=== PATIENT | male | born 1975 | race Caucasian/White ===

== ENCOUNTER 2025-04-23 13:00 | Inpatient (IN) | payer OTHER, SELFPAY ==
[2025-04-23] VITALS (19 sets, daily range): BP systolic 111–154; BP diastolic 70–127; BMI 36.9; BMI 34.7
--- NOTE | 2025-04-23 08:01 | ED.GENMED ---
History of Present Illness
General
Chief Complaint: Breathing Problem
Time Seen by Provider: 04/23/25 07:47
History of Present Illness
History of Present Illness:
49 yo male With history of hyperlipidemia presents to the emergency department for evaluation of chest pressure and fatigability for the past 3 to 4 days. He feels as though he cannot complete activities as easily as he could normally. he denies
any overt chest pain or shortness of breath but feels as though there is 'something sitting on my chest'. Denies any recent fevers or chills. Reports 2 alcoholic beverages over the weekend but denies any excessive alcohol or illicit substances.
No prior cardiac history
Past History
Past History
ED Past Medical History: GERD
ED Past Surgical History: Other (Hernia repair)
Social History
Tobacco: Non-smoker
Personal:
Living: with family
Employment: Employed
Family History
Family History: Other (Noncontributory)
Review of Systems
Review of Systems
Allergies reviewed?: Yes
All Other Systems: ROS reviewed and negative except as documented in HPI and ROS
Phy Exam
Physical Exam
Physical Exam:
GEN: Well appearing, NAD, WDWN
HEENT: Oral mucosa moist, no scleral icterus
Cardiac: Rapid irregular rate/rhythm, no murmur
Lung: No respiratory distress, no tachypnea, lungs clear to auscultation
MSK: No gross deformity or injuries, no lower extremity edema
Skin: Good color, no pallor or jaundice, no rashes
Neuro: AO x3, moves all extremities freely
Psych: Calm, cooperative
Scores
Heart Failure Risk
Heart Failure Risk Score: Not Applicable
Course
Orders/Labs/Results
Orders:
Orders
04/23/25 Breakfast
NPO
Allow oral meds: Yes
Allow clear liquids: Sips of Clears
04/23/25 07:44
Electrocardiogram (*1) Urgent
Reason for Study: Shortness of Breath
EKG- Treatment ONCE
04/23/25 07:59
Diltiazem HCl [Cardizem] 20 mg IV NOW STA
04/23/25 08:00
Diltiazem 125 mg/125 ml Nss [Cardizem] 125 mg in 125 ml IV PER PROTOCOL
Initial dose in mg/hr, then titrate:: 5
Titrate to keep:: Heart rate 80-100 bpm
Titrate by mg/hr:: 5 mg/hr
Frequency of titrations (minutes):: 15
Maximum dose in mg/hr:: 15
04/23/25 08:05
Complete Blood Count/With Diff Urgent
Comprehensive Metabolic Panel Urgent
Magnesium Urgent
Comment: ADD ON
NT-proBNP Urgent
Comment: ADD ON
TSH Reflex To Free T4 Urgent
Troponin I Urgent
04/23/25 08:46
Add On- LAB Urgent
Tests Added?: magnesium
04/23/25 09:04
Diltiazem [Cardizem] 30 mg PO NOW STA
04/23/25 09:30
PTT Urgent
Comment: Obtain baseline before beginning heparin infusion if not already collected
04/23/25 10:00
Add On- LAB Urgent
Tests Added?: BNP
CR Chest Portable - 1 View Urgent
Comment:
Reason For Exam: chest tightness
Reason Study Needs to be Portable: Other
04/23/25 11:02
Heparin 4,000 units IV NOW STA
Pharmacy Request to Place See Dose Instructions PO NOW STA
Discontinue all Active Warfarin orders?: Yes
04/23/25 11:[address] Non Medication Order As Directed
Physician Order: PTT 6 hours after initial start of Heparin infusion
Above order entered?: Yes
04/23/25 11:15
Heparin 81914 Units/250 ml 25,000 units in 250 ml IV PER PROTOCOL
Weight to be used for heparin protocol in kilograms (kg):: 134
Protocol:: Cardiac Tx/Acute Coronary
PTT Goal Range to be used:: PTT 73 to 111 seconds
Order type:: Initial
INITIAL Infusion Dose (UNITS/KG/hr) & then follow protocol:: 15 units/kg/hr
Infusion Dose in UNITS/hr & then follow protocol (UNITS/hr):: 1,500
INFUSION RATE in mL/hr & then follow protocol (mL/hr):: 15
PTT less than or equal to 64 seconds:: Increase rate by 200 units/hr (+ 2 mL/hr)
PTT 64.1 to 72.9 seconds:: Increase rate by 100 units/hr (+ 1 mL/hr)
PTT 73 to 111 seconds:: Target Range. No change in rate.
PTT 111.1 to 130.9 seconds:: Decrease rate by 100 units/hr (- 1 mL/hr)
PTT 131 to 199.9 seconds:: HOLD for 1 hr. Then decrease rate by 200 units/hr (- 2 mL/hr)
PTT greater than or equal to 200 seconds:: HOLD for 2 hrs & Notify Provider. Then decrease by 200 units/hr (-
2 mL/hr)
Lab follow-up:: Each change, PTT q6h until 2 consecutive are therapeutic. Then PTT
daily.
04/23/25 11:45
Echo 2D MMode Color/Doppler Urgent
Reason for Study: suspect new onset heart failure w/ new afib rvr
04/23/25 11:46
CT Chest PE Study Urgent
Comment:
Reason For Exam: new onset persistent chest discomfort sob afib
04/23/25 11:56
CARDIOLOGY CONSULT Routine
Consulting Provider: Efrain Howell
Was physician already notified: Yes
Reason for consult: new onset afib rvr. Possible Heart Failure
04/23/25 11:59
Admit/Transfer Patient As Directed
Co-Sign Provider:
Level of Care: Inpatient admission
Assign to:: IVU
Physician / Group: Jaime Helm
Diagnosis: New onset Afib RVR possible HF possible PE
Reason for Hospitalization: New onset Afib RVR possible HF possible PE
Expected length of stay greater than two midnights?: Yes
ELOS- Estimated Length of Stay in days: 2
I certify the patient meets the requirements for IP care: Yes
PRN Pain Medication Management As Directed
May give lesser potent ordered pain med per pt: Yes
preference::
Protocol:: Medication orders for pain may be administered in a
manner that supports deferring to patient preference
when the pt is:
- Requesting an ordered lesser potent pain medication.
Least to most potent pain medications are defined
as: acetaminophen < NSAID < tramadol < opioids
(morphine, oxycodone, hydromorphone).
- Requesting a lesser dose of the same medication IF
ORDERED.
- Requesting a less intrusive route of administration
if both routes are prescribed by the provider (PO <
IV).
04/23/25 12:[address] See Dose Instructions IV DIRECTED
04/23/25 12:02
Code Status As Directed
Resuscitation Status: Full Code
04/23/25 12:11
Venous Doppler Lwr Ext Bilat [US Periph Venous LOWER Ext Parth] Routine
Comment:
Reason For Exam: calf asymmetry new onset afib rvr
04/23/25 12:21
Troponin I Routine
04/23/25 17:30
PTT Urgent
Abnormal Lab Results
04/23/25
08:05
WBC 12.6 H 10^3/uL
(4.8-10.8)
Absolute Neuts (auto) 8.4 H 10^3/uL
(1.4-6.5)
Absolute Monos (auto) 1.2 H 10^3/uL
(0.1-0.6)
Monocytes % 9.4 H %
(1.7-9.3)
Glucose 105 H mg/dl
(70-99)
04/23/25 08:05
04/23/25 08:05
Vital Signs
Initial and Last Documented VS:
Initial Vital Signs
Temp Pulse Resp Pulse Ox
98.8 F 77 16 98
04/23/25 07:41 04/23/25 07:41 04/23/25 07:41 04/23/25 07:41
Last Documented Vital Signs
Temp Pulse Resp BP Pulse Ox
98.8 F 98 24 126/105 96
04/23/25 07:41 04/23/25 12:15 04/23/25 12:15 04/23/25 12:00 04/23/25 12:15
MDM/Problems Addressed
MDM/Problems Addressed:
49-year-old male presenting with new onset rapid atrial fibrillation. He appears quite well despite his heart rate in the 170s on arrival. Initial lab workup is unrevealing, the patient was given IV diltiazem by bolus and infusion with good rate
improvement however despite gradual up titration of diltiazem we were unable to achieve sustained rates below 110-120. We did give him oral diltiazem with the hope of bridging him off of the infusion had we been able to achieve adequate rate
control however given consistent tachycardia at rest will admit to the hospitalist service for further management. Heparin order initiated in the ED for anticoagulation
Comment
Comment:
EKG shows an irregular narrow complex tachycardia, most likely variable conduction atrial flutter
*Pulse Oximetry
SaO2: 98
Oxygen Mode of Delivery: Room air
Patient hypoxic: no
*Critical Care Note
Total Time (30-74mins, 75-104mins- exclusive of procedures): 30 minutes
comment:
Critical care time: 30 minutes
Critical care time was exclusive of: Separately billable procedures, treating other patients, and teaching time
Critical care was necessary to treat or prevent imminent or life-threatening deterioration of the following conditions: Rapid atrial fibrillation
Critical care time spent personally by me on the following activities:
[x] Review of old charts
[x] Obtaining history from patient or surrogate
[x] Ordering and review of the laboratory studies
[x] Ordering and review of radiographic studies
[x] Ordering and performing treatments and interventions
[x] Patient patient's response to treatment
[x] Development of treatment plan with patient or surrogate
ED Attending Note
-
Portions of this chart may have been created with voice recognition software.� Occasional wrong word or��sound alike� substitutions may have occurred due to the inherent limitations of voice recognition software.
Discharge Plan
Departure
Patient Disposition: Admit
Date of Disposition: 04/23/25
Time of Disposition: 11:05
Admit to: Telemetry
Presentation/result/management discussed w/ accepting MD/DO: Hospitalist
Discharge Problem:
Atrial fibrillation with RVR
Interventions
Interventions:
*Risk Screen - Suicide Last Done: 04/23/25 07:41
*General Assessment Last Done: 04/23/25 08:20
*Neglect/Abuse Screening Last Done: 04/23/25 07:41
*ED- Fall Risk Assessment Last Done: 04/23/25 08:20
*ED COVID-19 Vaccine History Last Done: 04/23/25 08:20
ED- Cardiac Assessment Last Done: 04/23/25 08:20
ED- Pulmonary Assessment Last Done: 04/23/25 08:20
[2025-04-23] MEDS: CARDIZEM 125 IV ×2 (08:18→17:19)
[2025-04-23] MEDS: CARDIZEM 20 MG IV (08:18)
[2025-04-23 08:21] LABS: Hematocrit 50.3 % (39.0-52.0); Hemoglobin 16.6 g/dL (13.0-18.0); Mean Corp Hgb Conc. 33.0 g/dL (33.0-37.0); Mean Corpuscular Volume 88.4 fL (80.0-94.0); Nucleated Red Blood Cells % 0 % (-); Platelet Count 386 10^3/uL (130-400); Red Cell Dist. Width 12.3 % (11.5-14.5)
[2025-04-23 08:34] LABS: ALT (SGPT) 30 U/L (0-50); AST (SGOT) 29 U/L (17-59); Albumin 4.4 g/dl (3.5-5.0); Alkaline Phosphatase 56 U/L (38-126); Blood Urea Nitrogen 17 mg/dl (9-20); Calcium 9.1 mg/dl (8.4-10.2); Carbon Dioxide 28 mmol/L (22-30); Chloride 107 mmol/L (98-107); Estimated Creatinine Clearance 99 ml/min; Glucose 105 mg/dl (70-99); Potassium 4.8 mmol/L (3.5-5.1); Sodium 142 mmol/L (135-145); Total Protein 6.8 g/dl (6.3-8.2); eGFR > 60.00
[2025-04-23 08:43] LABS: Troponin I < 0.012 ng/ml
[2025-04-23 09:05] LABS: Magnesium 1.8 mg/dl (1.6-2.3)
[2025-04-23] MEDS: CARDIZEM 30 MG PO (09:10)
--- NOTE | 2025-04-23 11:15 | HPS.HSE ---
Family Physician
-
Family Physician: Abundio Flores
Chief Complaint
-
Shortness of breath
History of Present Illness
49 male history obesity hyperlipidemia testosterone deficiency, recently started testosterone replacement therapy 3 months ago, history of left femur fracture manage nonoperatively with casting, ambulates without need for assistive device at
baseline, presents with shortness of breath chest tightness discomfort for the past 3 days. Started in the evening when patient was trying to sleep. Noted diaphoresis at onset of symptoms. Usual state of health prior to symptom onset.
Nonproductive cough. Denied fevers chills nausea vomiting diarrhea constipation. Noted 10 pound weight gain over the past week. Denied leg swelling. ED eval significant for Afib RVR, started on cardizem gtt and heparin gtt. Stable respiratory
status on room air at rest.
Medical History
Past Medical History
Past Medical History: Reports Other (as above)
Past Surgical History: Reports Other (as above)
Social History
Tobacco: Former Smoker (quit 25 years ago, smoked approx 15y before quitting)
Alcohol: Occasional
Drug: None
Personal:
Living: With Family
Employment: Employed
Family History
Family History: Not pertinent (reviewed)
Allergies / Home Medications
Allergies reflects when Allergies were last updated in [facility].
Home Medications with original date entered in [facility]
Allergy/Medication List:
Allergies
Allergy/AdvReac Type Severity Reaction Status Date / Time
Penicillins Allergy high Verified 09/06/17 18:13
fever,irritable
Home Medications
cholecalciferol (vitamin D3) 25 mcg (1,000 unit) tablet (Vitamin D3) 25 mcg PO DAILY 04/23/25
cyanocobalamin (vitamin B-12) 1,000 mcg tablet 1,000 mcg PO DAILY 04/23/25
duloxetine 60 mg capsule,delayed release 60 mg PO DAILY 04/23/25
ferrous sulfate 325 mg (65 mg iron) tablet 325 mg PO DAILY 04/23/25
rosuvastatin 5 mg tablet (Crestor) 5 mg PO QPM 04/23/25
therapeutic multivitamin 1 tab PO DAILY 04/23/25
vitamin K2 40 mcg tablet 40 mcg PO DAILY 04/23/25
Review of Systems
-
A 12 point ROS was completed and negative except as noted: Yes
Constitutional: Reports Other (as below)
Physical Exam
Vital Signs
Vital Signs
Temp Pulse Resp BP Pulse Ox
98.8 F 107 16 113/87 93
04/23/25 07:41 04/23/25 10:45 04/23/25 10:45 04/23/25 10:42 04/23/25 10:45
Physical Exam
General: Other (as below)
Laboratory Results
-
04/23/25 08:05
04/23/25 08:05
Laboratory Results
Total Bilirubin 1.3 mg/dl (0.2-1.3) 04/23/25 08:05
AST 29 U/L (17-59) 04/23/25 08:05
ALT 30 U/L (0-50) 04/23/25 08:05
Alkaline Phosphatase 56 U/L (38-126) 04/23/25 08:05
Troponin I < 0.012 ng/ml 04/23/25 08:05
Impression/Plan
-
ROS
General: Denies fever chills unexpected weight loss, reports unexpected weight gain 10 lbs past week
Neuro: Denies seizure shaking loss of consciousness dizziness vertigo
Psych: denies depression hallucinations confusion manic episodes
Endocrine: Denies polyuria polydipsia polyphagia heat/cold intolerance
HEENT: Denies blindness visual disturbances epistaxis
Pulmonary: reports occasional nonproductive cough exertional dyspness
Cardiovascular: reports chest tightness/discomfort palpitations denies leg swelling
Hematology: denies signs symptoms of anemia easy bruising/bleeding
Gastrointestinal: denies nausea vomiting diarrhea constipation hematemesis hematochezia melena reports appetite loss
Genito-Urinary: denies retention incontinence dysuria
Musculoskeletal: denies joint pain weakness
Dermatology: denies rash laceration bruising
Physical Exam
General: No pallor, cyanosis, or jaundice. Tanned appearance
HEENT: Throat clear. PERRLA Normocephalic atraumatic
NECK: Supple. No Carotid Bruits. JVD+
RESPIRATORY: Bibasilar Crackles auscultation
CVS: S1, S2 Irregularly Irregular tachy
ABDOMEN: Soft, non-tender. No distension. BS+/normal.
EXTREMITIES: No peripheral cyanosis or edema.
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
Psych: Calm
IMPRESSION:
49 male history obesity hyperlipidemia testosterone deficiency, started testosterone replacement therapy 3 months ago, history of left femur fracture manage nonoperatively with casting, ambulates without need for assistive device at baseline,
presents with shortness of breath chest tightness discomfort for the past 3 days. Started in the evening when patient was trying to sleep. Noted diaphoresis at onset of symptoms. Usual state of health prior to symptom onset. Nonproductive cough.
Denied fevers chills nausea vomiting diarrhea constipation. Noted 10 pound weight gain over the past week. Denied leg swelling. ED eval significant for Afib RVR, started on Cardizem gtt and heparin gtt. Stable respiratory status on room air at
rest.
PLAN:
#New Onset Afib RVR
#Suspected Associate Heart Failure
# Possible PE
IVU admit
BNP 3000s
Check Troponin
Cardio eval requested
Check CT chest PE study, ECHO, Venous Duplex
Daily Weight I/O
Consider Lasix pending CT chest study as above
cont hep gtt Cardizem Gtt
NPO except meds and sips of clears in case of need for intervention
DVT ppx hep gtt
GI ppx Protonix
Full Code
I spent a total of 80 minutes with the patient or on the floor. More than 50% of this time involved counseling and coordination of care.
[2025-04-23] MEDS: HEPARIN 4000 UNITS IV (11:26)
[2025-04-23] MEDS: HEPARIN 25000 UNITS/250 ML IV (11:32)
--- NOTE | 2025-04-23 11:51 | EDRN ---
Hospitalist notified that I will have to temporarily suspend CARDIZEM drip when pt gets hois CHEST CT test done as they will need to use that IV Site
[2025-04-23 12:03] LABS: APTT 32.1 Sec (23.4-35.0)
--- NOTE | 2025-04-23 12:20 | CON.CAR ---
Addendum entered and electronically signed by Efrain Howell MD 04/23/25 18:24:
I saw and examined the patient independently.
The [employer] DISPATCHER's note was reviewed and I agree with the note with any changes/additions below.
Comment:
49 yo male with dyslipidemia admitted with new onset A fib with RVR. He feels fatigue and chest heaviness for 3 days. Exam with irregular rhythm, no murmurs, no edema. Tele: A fib with RVR. TnI <0.012. Echo: EF 50-55%.
# A fib with RVR
-diltiazem drip: requires monitoring of tele
-CHADS2-VASC =0. Eliquis 5mg bid in preparation for DCCV, then 30 days after.
-plan for TRISTA and DCCV in AM
# Dyslipidemia
-stable: cont statin
Original Note:
Consultation
Consultation Request
Date/Time Consultation Requested: 04/23/25 1210
Date/Time Consultation Performed: 04/23/25 1220
Requesting Provider: Dr. Helm
Performing Provider: Erika ROSE for Dr. Howell
Reason for Consultation: AFIB with RVR
Medical History
-
Chief Complaint: chest discomfort and fatigue
History of Present Illness:
49 y/o male with dyslipidemia and GERD who is here for evaluation of several days of chest discomfort (heavy) and fatigue (started Wednesday night) - feels like something sitting on his chest, but has been present consistently since Wednesday- trop
normal. Laying makes it worse. He also had sweating Wednesday night and was unable to sleep. He is seen to be in AFIB with RVR and is placed on diltiazem and heparin drips. Of note, he reports a recent coronary calcium score of 0.
Past Medical History
Past Medical History: GERD and Hypercholesterolemia
Social History
Tobacco: Non-Smoker
Alcohol: Occasional
Personal:
Living: With Family
Allergies / Home Medications
Allergy/AdvReac Type Severity Reaction Status Date / Time
Penicillins Allergy high Verified 09/06/17 18:13
fever,irritable
�Medication �Instructions �Recorded �Confirmed �Type
cholecalciferol (vitamin D3) 25 25 mcg PO DAILY 04/23/25 04/23/25 History
mcg (1,000 unit) tablet (Vitamin
D3)
cyanocobalamin (vitamin B-12) 1,000 mcg PO DAILY 04/23/25 04/23/25 History
1,000 mcg tablet
duloxetine 60 mg capsule,delayed 60 mg PO DAILY 04/23/25 04/23/25 History
release
ferrous sulfate 325 mg (65 mg 325 mg PO DAILY 04/23/25 04/23/25 History
iron) tablet
rosuvastatin 5 mg tablet (Crestor) 5 mg PO QPM 04/23/25 04/23/25 History
therapeutic multivitamin 1 tab PO DAILY 04/23/25 04/23/25 History
vitamin K2 40 mcg tablet 40 mcg PO DAILY 04/23/25 04/23/25 History
Review of Systems
-
History Source: Patient
All other systems: Negative unless noted
Constitutional: Fatigue
Cardiac: Chest Pain
Physical Exam
Vital Signs
Temp Pulse Resp BP Pulse Ox
98.8 F 108 25 115/82 96
04/23/25 07:41 04/23/25 11:45 04/23/25 11:45 04/23/25 11:30 04/23/25 11:15
Lab Results
04/23/25 08:05
04/23/25 08:05
Troponin I < 0.012 ng/ml 04/23/25 08:05
Sgq-A-Exycokcdgkv Pept 3040 pg/ml 04/23/25 08:05
Physical Exam
General: Well Developed, Well Nourished and No Apparent Distress
HEENT: Normocephalic and Anicteric
Respiratory: Clear and Non Labored Respirations
Cardiac: Irregular Rhythm
Musculoskeletal: No Edema
Skin: Warm and Dry
Neuro: AO x 3
Psych: Calm
Impression / Plan
-
AFIB with RVR:
-continue IV diltiazem and IV heparin, both of which require intensive monitoring
-TSH normal
-plan TRISTA and CV in AM
-[id number] score is 0. However, will need short-term AC if cardioverted.
-echo today, if EF normal, transition to Eliquis x 1 month
-sleep study as OP- reports he snores
-we discussed aerobic exercise, keeping good weight, and avoiding excess ETOH
HLD:
-on statin
Data Reviewed
-
EKG: Tracing Personally Visualized and interpreted (AFIB with RVR, LAD. HR 148 BPM.)
Radiology: Report Reviewed by me (CXR: Low lung volumes with mild bibasilar opacities, likely atelectasis. No focal airspace disease. No pleural effusions or pneumothorax.)
Medical Tests (Nuc Med, Echo etc): Other (echo ordered)
Labs: Labs Reviewed by me
[2025-04-23 13:00] LABS: Troponin I < 0.012 ng/ml
[2025-04-23] MEDS: PROTONIX 40 MG PO (17:18)
[2025-04-23] MEDS: CRESTOR 5 MG PO (18:02)
[2025-04-23 18:33] LABS: APTT > 200 Sec (23.4-35.0)
[2025-04-23] MEDS: ELIQUIS 5 MG PO (20:15)
--- NOTE | 2025-04-23 23:38 | PTCARENOTE ---
Received pt from ED RN via stretcher @ approx 2220 into room 2250. Tele applied to pt, Afib rhythm, HR 90's-100's. pt reports chest pressure of 2/10 as if 'something is sitting on my chest' and states it feels similar to what it felt like when he
came into the ED.' Cardizem gtt infusing per protocol. EKG obtained. Kathy allen NP made aware. Trops ordered and obtained. Oriented pt to room and call roberts. pt denies any lightheadness/dizziness while ambulating. Call roberts within reach.
[2025-04-24 00:04] LABS: Troponin I < 0.012 ng/ml
[2025-04-24] MEDS: CARDIZEM 125 IV (01:30)
[2025-04-24 04:28] VITALS: BP 137/86
[2025-04-24] MEDS: TYLENOL 650 MG PO (04:54)
[2025-04-24 04:56] LABS: Hematocrit 47.5 % (39.0-52.0); Hemoglobin 16.1 g/dL (13.0-18.0); Mean Corp Hgb Conc. 33.9 g/dL (33.0-37.0); Mean Corpuscular Volume 87.0 fL (80.0-94.0); Platelet Count 336 10^3/uL (130-400); Red Cell Dist. Width 12.5 % (11.5-14.5)
[2025-04-24 05:24] LABS: Blood Urea Nitrogen 14 mg/dl (9-20); Calcium 9.0 mg/dl (8.4-10.2); Carbon Dioxide 25 mmol/L (22-30); Chloride 110 mmol/L (98-107); Estimated Creatinine Clearance 104 ml/min; Glucose 97 mg/dl (70-99); HDL Cholesterol 36 mg/dl; LDL Cholesterol, Calculated 87 mg/dl; Magnesium 2.0 mg/dl (1.6-2.3); Potassium 4.7 mmol/L (3.5-5.1); Sodium 141 mmol/L (135-145); Very Low Density Lipoprotein 10 mg/dl (0-30); eGFR > 60.00
[2025-04-24 06:00] VITALS: BMI 34.5
--- NOTE | 2025-04-24 08:01 | W.PN.HOSP.TC ---
Today's Communication/Plan
-
discharge
Assessment / Plan
Assessment / Plan
Physical Exam
General: No pallor, cyanosis, or jaundice. Tanned appearance
HEENT: Throat clear. PERRLA Normocephalic atraumatic
NECK: Supple. No Carotid Bruits
RESPIRATORY: Clear to Auscultation b/l
CVS: S1, S2 regular rate rhythm
ABDOMEN: Soft, non-tender. No distension. BS+/normal.
EXTREMITIES: No peripheral cyanosis or edema.
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
Psych: Calm
IMPRESSION:
49M Obesity HLD testosterone deficiency, on TRT, history of left femur fracture manage nonoperatively with casting, ambulates without need for assistive device at baseline, presents with shortness of breath chest tightness discomfort for the past 3
days. Started in the evening when patient was trying to sleep. Noted diaphoresis at onset of symptoms. Usual state of health prior to symptom onset. Nonproductive cough. Denied fevers chills nausea vomiting diarrhea constipation. Noted 10
pound weight gain over the past week. Denied leg swelling. ED eval significant for Afib RVR, started on Cardizem gtt and heparin gtt. Stable respiratory status on room air at rest.
PLAN:
#New Onset Afib RVR
#Suspected Associate Heart Failure ruled out
# Possible PE ruled out
IVU admit
BNP 3000s
Troponin neg x3
Cardio eval Appreciated s/p successful TRISTA/DCCV 04/24 cleared for discharge, Cardizem 120 mg daily, Eliquis for 1 mo, outpt follow up
CT chest neg for PE, pulm nodule 8 mm posterior right apex noted, outpt follow up CT 12 mo recommended, atelectasis, possible Multifocal PNA unlikely (consistently afebrile, mild Leukocytosis on admission already resolved w/o need for abx,
Procalcitonin neg)
ECHO appreciated EF 50-55% no significant valve dz
Venous Duplex neg for DVT
DVT ppx Eliquis
GI ppx Protonix
Full Code
Medically stable for discharge home with outpatient follow up recommendations.
Total Time Preparing Discharge __40 minutes including examination of the patient, summary of the hospital stay, instructions for continuing care to all relevant caregivers; and preparation of discharge records, prescriptions, and referral
forms if necessary.
Anticipated Discharge: Today
Subjective/Interval History
-
Date of Service: April 24, 2025
S/P successful TRISTA/DCCV this morning. Overall reports feeling well. Chest tightness SOB resolved. Denies new acute issues. Looking forward to going home.
Objective Data
-
Labs:
Laboratory Results
04/24/25
04:33
WBC 9.9
Hgb 16.1
Hct 47.5
Plt Count 336
Sodium 141
Potassium 4.7
Chloride 110 H
Carbon Dioxide 25
BUN 14
Creatinine 1.2
Glucose 97
Calcium 9.0
Vital Signs:
Vital Signs
Temp Pulse Resp BP Pulse Ox
98.2 F 91 16 137/86 92
04/24/25 04:28 04/24/25 06:15 04/24/25 04:28 04/24/25 04:28 04/24/25 04:28
I&O
04/23/25 04/24/25 04/25/25
06:59 06:59 06:59
Intake Total 360 / 360
Output Total 350 / 350
Balance
[2025-04-24] MEDS: CYMBALTA DELAYED RELEASE 60 MG PO (08:20)
[2025-04-24] MEDS: ELIQUIS 5 MG PO (08:20)
[2025-04-24 08:21] VITALS: BP 117/92
[2025-04-24] MEDS: PROTONIX 40 MG PO (08:21)
[2025-04-24] MEDS: FLUSH (NSS) 1 FLUSH IV (08:21)
--- NOTE | 2025-04-24 09:42 | CM ---
Pricing on Eliquis through the patient's prescription plan is $30 for a 30 day supply. I will place a $10 copay card in the patient's red discharge folder.
--- NOTE | 2025-04-24 09:51 | PTCARENOTE ---
Received patient this morning resting in bed, remains in AF, HR controlled at rest, 120's with activity. IV cardizem infusing at 10mg/hr. Patient given AM meds with a sip of water, report given to Cesario and patient taken for TRISTA/CV.
--- NOTE | 2025-04-24 11:16 | W.PN.CD ---
Today's Communication / Plan
-
Successful TRISTA/DCCV.
Okay for discharge today.
To be discharged on diltiazem 120 mg daily and Eliquis for 1 month.
We will request follow-up with our office
Impression / Plan
-
AFIB with RVR:
-TSH normal
-s/p TRISTA/DCCV today
-[id number] score is 0. However, will need Eliquis x 1 month post-DCCV
-sleep study as OP- reports he snores
-we discussed aerobic exercise, keeping good weight, and avoiding excess ETOH
HLD:
-on statin
Subjective: No CV complaints. Ready for for procedure.
Physical Exam
Vital Signs/Labs
Vital Signs
Temp Pulse Resp BP Pulse Ox
98.1 F 92 18 117/92 96
04/24/25 08:22 04/24/25 08:22 04/24/25 08:22 04/24/25 08:21 04/24/25 08:22
04/23/25 04/24/25 04/25/25
06:59 06:59 06:59
Actual Weight 276 lb 0.3 oz
04/24/25 04:33
04/24/25 04:33
APTT > 200 Sec (23.4-35.0) H* 04/23/25 17:23
Magnesium 2.0 mg/dl (1.6-2.3) 04/24/25 04:33
Triglycerides 50 mg/dl (10-149) 04/24/25 04:33
LDL Cholesterol, Calc 87 mg/dl 04/24/25 04:33
VLDL Cholesterol, Calc 10 mg/dl (0-30) 04/24/25 04:33
HDL Cholesterol 36 mg/dl 04/24/25 04:33
04/23/25
08:05
Uro-S-Tinrzdoncqd Pept 3040
LAB Results
04/23/25 04/23/25 04/23/25
08:05 12:21 23:29
Troponin I < 0.012 < 0.012 < 0.012
Physical Exam
Constitutional: No acute distress and Comfortable
Cardiovascular: Pedal edema is absent, Rhythm/rate is irregular, S1S2 is normal and Murmur/rub/gallop absent
Respiratory: Respiratory effort normal and Lungs clear to auscul.
Neuro/Psych: AO x 3
Data Reviewed
-
Date of Service: April 24, 2025
Medical Decision Making: Reviewed Test Results, Independent Historian Assessment, Test Interpretation and Review of Case with other Provider
EKG: Tracing Personally Visualized and interpreted
Echo: Tracing Personally Visualized and interpreted and Report Reviewed by me
Labs: Labs Reviewed by me
[2025-04-24 11:22] VITALS: BP 115/91
[2025-04-24 11:30] VITALS: BP 121/92
--- NOTE | 2025-04-24 11:46 | CM ---
Chart reviewed. Patient is independent of ADLS, lives with his in a [address], 3 [address], 0 DME. Plan is for the patient to return home. CM to follow
[2025-04-24 12:00] VITALS: BP 119/94
[2025-04-24] MEDS: THERAGRAN 1 TABLET PO (12:39)
[2025-04-24] MEDS: VITAMIN B-12 1000 MCG PO (12:39)
[2025-04-24] MEDS: VITAMIN D3 (cholecalciferol) 25 MCG PO (12:39)
--- NOTE | 2025-04-24 13:22 | PTCARENOTE ---
Patient returned from the EP lab at 1124 after successful TRISTA/CV. SR on the monitor, patient offers no complaints and feels much better. VSS, eating lunch now, call roberts in reach.
[2025-04-24 14:21] LABS: Procalcitonin < 0.05 ng/ml (0.0-0.25)
[2025-04-24 15:04] VITALS: BP 132/79
--- NOTE | 2025-04-24 15:29 | PTCARENOTE ---
IV cardizem discontinued in the EP lab. Patient ordered to start PO dose in the AM. TT to Dr. Calderon to clarify that is ok to start dose tomorrow, which she confirmed.
--- NOTE | 2025-04-24 16:27 | W.DCSUMMARY ---
Discharge Summary
Discharge Data
Date of Admission: 04/23/25
Date of Discharge: 04/24/25
-
Pending Results: No
Discharge Plan
-
Patient Disposition: Home (Routine Discharge)
Discharge Diagnosis/Procedures: Atrial Fibrillation with rapid ventricular rate
Status post Successful Cardioversion 04/24/25
Pulmonary Nodule 8mm posterior right apex
Condition: Good
Diet: Regular
Activity: As tolerated
Driving Restrictions: As prior to admission
Bathing Restrictions: None
Others Tests: Repeat CT chest with primary care provider in 1 year to follow up on pulmonary nodule 8 mm right posterior apex
Follow up with primary care provider for outpatient sleep study
Activity Restrictions/Additional Instructions:
Follow up with primary care provider in 1 week of discharge and keep your appointment with Cardiology.
Eliquis prescribed, 1 month, for stroke risk reduction following recent successful cardioversion atrial fibrillation.
Cardizem prescribed for heart rate control and prevention return atrial fibrillation.
Please take medications as prescribed/recommended and follow up with primary care provider Cardiology and/or other healthcare provider involved in your care for refills and/or further adjustment to your medication regimen as necessary.
Referrals:
Abundio Flores MD [Family Provider, Family Practice] - in one week
Charlette Mueller CRNP [Specified Professional Personl, Cardiology] - 05/25/25 10:40 am
Prescriptions:
New
Eliquis 5 mg Tablet
5 mg PO BID Qty: 60 0RF
diltiazem HCl 120 mg Capsule,Extended Release 24hr
120 mg PO DAILY Qty: 30 0RF
Continued
cyanocobalamin (vitamin B-12) 1,000 mcg Tablet
1,000 mcg PO DAILY
therapeutic multivitamin Tablet
1 tab PO DAILY
ferrous sulfate 325 mg (65 mg iron) Tablet
325 mg PO DAILY
rosuvastatin [Crestor] 5 mg Tablet
5 mg PO QPM
cholecalciferol (vitamin D3) [Vitamin D3] 25 mcg (1,000 unit) Tablet
25 mcg PO DAILY
vitamin K2 40 mcg Tablet
40 mcg PO DAILY
Discharge Orders:
Discharge Patient (As Directed); Ordered 04/24/25
Ordered By: Jaime Helm
Care Plan Goals
Care Plan Goals:
Problem: Readiness for enhanced knowledge related to diagnosis and treatment plan
Goal: Understand your diagnosis and treatment plan needs, including medications if applicable.
Instructions: Know your diagnosis, underlying causes and treatment plan options, including medications if applicable. Consult with your health care team to learn about your diagnosis and treatment plan, including medications if applicable.
Discharge Date and Time
Print Language: CITIZEN OF [place]
--- NOTE | 2025-04-24 17:30 | PTCARENOTE ---
"Patient remained in SR post CV, seen by the hospitalist and is ok for discharge home. Reviewed discharge instructions, new medications and follow up appointments with the patient and he states his understanding. Patient discharged home, his mother "Morales"is driving him home, aware of driving restrictions for 24 hours post CV."
--- NOTE | 2025-04-30 15:30 | OID.L.PAT ---
Pulmonary Nodule Pat Letter
- -
04/30/25
NICOLA Abhi TURBYFILL
[address]
[place], [place]
Dearon PETERSEN,
A pulmonary nodule was seen on an imaging study done by [facility]. This was reviewed by the [facility] Pulmonary Nodule Advisory Board and the following recommendation was made:
Recommendation: Follow up CT Chest in 12 months.
If you have any questions, please do not hesitate to contact your primary care physician. If you are in need of a Physician, you can go to [email or web address] and click on 'Find a Provider'. Type 'Family Medicine' in the search.
Oncology Nurse Navigator
[facility]
[phone]
--- NOTE | 2025-04-30 15:31 | OID.L.REC ---
Pulmonary Nodule Follow Up
- Recommendation
04/30/25
Pulmonary Nodule Review Recommendations
Your patient, NICOLA HENLEY, had a pulmonary nodule seen on an imaging study done on 04/23/2025 in the [facility] Emergency Department.
This was reviewed by the [facility] Pulmonary Nodule Advisory Board and the following recommendation was made:
Recommendation: Follow up CT Chest in 12 months.
If you have any questions, please do not hesitate to contact us.
Sincerely,
Oncology Nurse Navigator
[facility]
[phone]
== END 2025-04-24 17:07 | disposition home or self-care (01) | DRG 309 ==
LOC: IVU 13:00
PROVIDERS: Nurse Practitioner Family; Physician Assistant; Student in an Organized Health Care Education/Training Program; ADMITTING PHYSICIAN Internal Medicine; CONSULT PHYSICIAN Internal Medicine; EMERGENCY PHYSICIAN Student in an Organized Health Care Education/Training Program; FAMILY PHYSICIAN Family Medicine
PROC: 5A2204Z Restoration of Cardiac Rhythm, Single (ICD-10-PCS; 2025-04-24)
PROC: B24BZZ4 Ultrasonography of Heart with Aorta, Transesophageal (ICD-10-PCS; 2025-04-24)
DX: I48.91 Unspecified atrial fibrillation (principal); Q21.12 Patent foramen ovale; E29.1 Testicular hypofunction; K21.9 Gastro-esophageal reflux disease without esophagitis; E66.9 Obesity, unspecified; Z79.890 Hormone replacement therapy; Z87.891 Personal history of nicotine dependence; Z88.0 Allergy status to penicillin; Z79.899 Other long term (current) drug therapy; Z79.01 Long term (current) use of anticoagulants; Z68.34 Body mass index [BMI] 34.0-34.9, adult
CPT/HCPCS: 71045; 71275; 80048; 80053; 80061; 83735; 83880; 84145; 84443; 84484; 85025; 85027; 85730; 92960; 93005; 93306; 93312; 93320; 93325; 93970; 96374; 96375; 96376; 99291; Q9967

== ENCOUNTER → 2025-07-04 11:47 | Outpatient (REF) | payer OTHER, SELFPAY | LOC: DHSLP 11:47 | PROVIDERS: ATTENDING PHYSICIAN Family Medicine | DX: G47.33 Obstructive sleep apnea (adult) (pediatric) (principal); R09.02 Hypoxemia; G47.52 REM sleep behavior disorder | CPT/HCPCS: 95810 ==